=== PATIENT | male | born 1960 | race African-American/Black ===

== ENCOUNTER 2017-01-17 09:37 | Emergency (ER) | payer OTHER ==
[~2017-01-17] VITALS: Ht 180.3 cm; Wt 93.0 kg
[~2017-01-17 09:37] MED LIST: APIX5 PO; APIX5TAB PO
[2017-01-17 09:39] VITALS: BP 137/73; PULSE 92; RESP 20; TEMP 98.9; O2SAT 95
[2017-01-17] MEDS ORDERED: ONDANSETRON ODT 4 MG TAB PO ONE (10:30)
[2017-01-17] MEDS ORDERED: KETOROLAC TROMETHAMINE 60 MG/2 ML (IM) VIAL IM ONE (10:30)
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
[2017-01-17] MEDS ORDERED: IBUP800T23 PO (11:33)
[2017-01-17] MEDS ORDERED: MOME17I EACH NARE (11:33)
[2017-01-17] MEDS ORDERED: OSEL75 PO (11:33)
[2017-01-17] MEDS ORDERED: ZOFR4TAB3 SL (11:41)
== END 2017-01-17 12:07 | disposition home or self-care (01) ==
LOC: NEPB 09:37
DX: J09.X2 Influenza due to identified novel influenza A virus with other respiratory manifestations (principal); M79.1 Myalgia; R51 Headache; R09.81 Nasal congestion; R11.0 Nausea; R05 Cough; Z87.442 Personal history of urinary calculi; Z72.0 Tobacco use
CPT/HCPCS: 87804; 96372; 99284; J1885

== ENCOUNTER 2018-12-13 12:10 | Inpatient (IN) ==
[2018-12-13] MEDS ORDERED: Morphine Inj 4 MG/ML Vial IV.PUSH ONE ×2 (12:44→14:10)
[2018-12-13] MEDS ORDERED: Sod Chloride 0.9% Inj 1,000 ML IV.SIG ONE (12:44)
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
[2018-12-13 13:13] LABS: Baso # (Auto) 0.1 th/mm3 (0.0-0.2); Baso % (Auto) 0.6 % (0.0-2.0); Eos # (Auto) 0.4 th/mm3 (0.0-0.4); Eos % (Auto) 3.9 % (0.0-4.0); Hematocrit 40.3 % (39.0-51.0); Hemoglobin 14.4 gm/dL (13.0-17.0); Lymph # (Auto) 3.1 th/mm3 (1.0-4.8); Lymph % (Auto) 33.3 % (9.0-44.0); Mean Corpuscular HGB Conc 35.7 % (32.0-36.0); Mean Corpuscular Hemoglobin 34.9 pg (27.0-34.0); Mean Corpuscular Volume 97.6 fL (80.0-100.0); Mean Platelet Volume 8.2 fL (7.0-11.0); Mono # (Auto) 0.6 th/mm3 (0.0-0.9); Mono % (Auto) 6.8 % (0.0-8.0); Neut # (Auto) 5.1 th/mm3 (1.8-7.7); Neut % (Auto) 55.4 % (16.0-70.0); Platelet Count 233 th/mm3 (150-450); Red Blood Count 4.13 mil/mm3 (4.50-5.90); Red Cell Distribution Width 13.9 % (11.6-17.2); White Blood Count 9.2 th/mm3 (4.0-11.0)
[2018-12-13 13:18] LABS: Bacteria,Urine Rare /hpf; Bilirubin,Urine Negative (Negative); Clarity,Urine Hazy (Clear); Color,Urine Yellow (Yellw/Straw); Glucose,Urine (UA) Negative (Negative); Leukocyte Esterase,Urine Negative (Negative); Mucus,Urine Few /lpf (Occasional); Nitrite,Urine Negative (Negative); Specific Gravity,Urine 1.023 (1.002-1.035); Squamous Epithelial Cell,Urine 1 /hpf (0-5)
[2018-12-13 13:30] LABS: Alkaline Phosphatase 65 U/L (45-117); Total Protein 8.5 g/dL (6.4-8.2)
[2018-12-13 13:37] LABS: Alanine Aminotransferase 23 U/L (12-78); Albumin 4.2 g/dL (3.4-5.0); Anion Gap 4 meq/L (5-15); Aspartate Aminotransferase 19 U/L (15-37); Blood Urea Nitrogen 14 mg/dL (7-18); Calcium 8.9 mg/dL (8.5-10.1); Carbon Dioxide 29.5 meq/L (21.0-32.0); Chloride 107 meq/L (98-107); Glomerular Filtration Rate Greater Than 89 mL/min (>89); Glucose,Random 87 mg/dL (74-106); Lipase 83 U/L (73-393); Magnesium 2.3 mg/dL (1.5-2.5); Potassium 3.9 meq/L (3.5-5.1); Sodium 140 meq/L (136-145)
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
[2018-12-13] MEDS ORDERED: Acetaminophen 325 MG Tablet PO PRN (14:35)
[2018-12-13] MEDS ORDERED: Morphine Inj 4 MG/ML Vial IV.PUSH PRN (14:48)
[2018-12-13] MEDS: Sod Chloride 0.9% Inj 1,000 ML IV.CONT SCH (14:50)
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
[2018-12-13] MEDS: Enoxaparin Inj 30 MG/0.3 ML Syringe SQ SCH (16:09)
[2018-12-13] MEDS: Senna/Docusate Sodium 8.6/50 MG Tablet PO SCH (20:17)
[2018-12-13] MEDS ORDERED: HYDROmorphone PF Inj 1 MG/ML Ampul IV.PUSH PRN (21:42)
[2018-12-13] MEDS ORDERED: HYDROmorphone PF Inj 1 MG/ML Ampul IV.PUSH ONE (21:45)
[2018-12-14] MEDS: HYDROmorphone PF Inj 2 MG/ML Vial IV.PUSH PRN ×3 (01:07→06:10)
[2018-12-14] MEDS: Sod Chloride 0.9% Inj 1,000 ML IV.CONT SCH ×3 (01:07→16:07)
[2018-12-14 07:50] LABS: Baso % (Auto) 0.4 % (0.0-2.0); Eos # (Auto) 0.4 th/mm3 (0.0-0.4); Eos % (Auto) 5.7 % (0.0-4.0); Hematocrit 36.2 % (39.0-51.0); Hemoglobin 12.5 gm/dL (13.0-17.0); Lymph # (Auto) 2.8 th/mm3 (1.0-4.8); Lymph % (Auto) 40.1 % (9.0-44.0); Mean Corpuscular HGB Conc 34.6 % (32.0-36.0); Mean Corpuscular Hemoglobin 33.8 pg (27.0-34.0); Mean Corpuscular Volume 97.7 fL (80.0-100.0); Mean Platelet Volume 8.8 fL (7.0-11.0); Mono # (Auto) 0.7 th/mm3 (0.0-0.9); Mono % (Auto) 10.4 % (0.0-8.0); Neut % (Auto) 43.4 % (16.0-70.0); Platelet Count 207 th/mm3 (150-450); Red Cell Distribution Width 13.8 % (11.6-17.2)
[2018-12-14 08:19] LABS: Alanine Aminotransferase 16 U/L (12-78); Albumin 3.1 g/dL (3.4-5.0); Alkaline Phosphatase 53 U/L (45-117); Anion Gap 5 meq/L (5-15); Aspartate Aminotransferase 15 U/L (15-37); Blood Urea Nitrogen 8 mg/dL (7-18); Carbon Dioxide 25.6 meq/L (21.0-32.0); Chloride 109 meq/L (98-107); Glomerular Filtration Rate Greater Than 89 mL/min (>89); Glucose,Random 86 mg/dL (74-106); Sodium 140 meq/L (136-145); Total Protein 6.6 g/dL (6.4-8.2)
[2018-12-14] MEDS: Enoxaparin Inj 30 MG/0.3 ML Syringe SQ SCH (08:32)
[2018-12-14] MEDS: Senna/Docusate Sodium 8.6/50 MG Tablet PO SCH ×2 (08:32→20:41)
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
[2018-12-15] MEDS: Sod Chloride 0.9% Inj 1,000 ML IV.CONT SCH (01:44)
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
[2018-12-15] MEDS: Senna/Docusate Sodium 8.6/50 MG Tablet PO SCH (09:23)
[2018-12-15] MEDS: Enoxaparin Inj 30 MG/0.3 ML Syringe SQ SCH (09:23)
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
== END 2018-12-15 13:34 | disposition home or self-care (01) | DRG 390 ==
LOC: NEDA 12:10 → NEPD 12:10 → NEDA 17:02 → NEPGCP 17:44 → N06 12-14 16:46
PROVIDERS: ADMIT Hospitalist; ATTEND Hospitalist
CPT/HCPCS: 74000; 74018; 74177; 80053; 81001; 83690; 83735; 85025; J1170; J1650; J2270; J2405; J7030; Q9967